=== PATIENT | male | born 1960 | race Caucasian/White ===

== ENCOUNTER 2020-04-24 07:24 | Emergency (ER) | payer SELFPAY ==
[~2020-04-24] VITALS: Ht 190.5 cm; Wt 127.0 kg
--- NOTE | 2020-04-24 07:51 | PHYS DOC ---
General Adult EDM: Chief Complaint: ANKLE PROBLEM HPI: HPI: 59-year-old male past medical history significant for hypertension and gout, presents to the ED with complaints of anterior right ankle pain that started on Sunday after patient injured his ankle while stepping in a hole. 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 No prior injury to this ankle. No pain at the knee or hip. Is supposed to be taking 5 blood pressure medications but refuses because they "flare up my gout." Pt has not been told by a physician his BP medications cause his gout, he believes they do. Reports his BP is "always high" and when asked what number he states "125." ROS: Denies associated fever, chills, headache, neck stiffness, nausea, vomiting, diarrhea, cough, sore throat, chest pain or pressure, dyspnea, orthopnea, leg swelling, rash, sensory/motor/neurologic deficits, difficulties walking, hemoptysis, other joint pain/swelling, anxiety/depression/SI or HI. Heart Score: Risk Factors: Risk Factors: DM, Current or recent (<one month) smoker, HTN, HLP, family history of CAD, obesity. Risk Scores: Score 0 - 3: 2.5% MACE over next 6 weeks - Discharge Home Score 4 - 6: 20.3% MACE over next 6 weeks - Admit for Clinical Observation Score 7 - 10: 72.7% MACE over next 6 weeks - Early Invasive Strategies PT WITH NO ACTIVE CHEST PAIN IN THE ED Physical Exam: PE: Constitutional: Well developed, well nourished, no acute distress, non-toxic appearance, obese HENT: Normocephalic, atraumatic, bilateral external ears normal, Eyes: EOMI, conjunctiva normal, no discharge. [] Neck: Normal range of motion, no tenderness, supple, no stridor. [] Cardiovascular:Heart rate regular rhythm, no murmur [] Lungs & Thorax: Bilateral breath sounds clear to auscultation [] Abdomen: Bowel sounds normal, soft, no tenderness, no masses, no pulsatile masses. [] Skin: Warm, dry, no erythema, no rash. [] Back: No tenderness, no CVA tenderness. [] Extremities: No tenderness, no cyanosis, no clubbing, ROM intact, +anterior ankle pain, no pain at lateral/medial malleoli/knee/fibular head or hip, right DP/PT intact Neurologic: Alert and oriented X 3, normal motor function, normal sensory function, no focal deficits noted. [] Psychologic: Affect normal, judgement normal, mood normal. [] EKG: EKG: Sinus rhythm at 60 bpm, no axis deviation, normal intervals, T wave inversion 1, 2, aVL, V4 through V6, no ST elevations or ST depressions, no prior EKG in EMR Radiology/Procedures: Radiology/Procedures: IMAGING REPORT Signed PATIENT: JUJU BYRD ACCOUNT: [id number] : 1960 LOCATION: ER AGE: 59 SEX: M EXAM STATUS: REG ER ORD. PHYSICIAN: ADAM TURNER DO REASON: ankle pain, pt stepped in a hole on Wed, pain lateral aspect. PROCEDURE: ANKLE RIGHT 3V Examination: 3 views of the right ankle HISTORY: History of ankle pain, injury COMPARISON: None available Findings The ankle mortise grossly appears unremarkable. There is no acute fracture or dislocation identified. Small calcaneal enthesophyte identified posteriorly and in the inferior aspect of the calcaneus IMPRESSION: 1. No acute osseous findings.. Electronically signed by: Joe Taylor MD (04/24/2020 8:13 AM) [id number] DICTATED and SIGNED BY: JOE TAYLOR MD DATE: 04/24/20812 IMAGING REPORT Signed PATIENT: JUJU BYRD ACCOUNT: [id number] : 1960 LOCATION: ER AGE: 59 SEX: M EXAM STATUS: REG ER ORD. PHYSICIAN: ADAM TURNER DO REASON: elevated bp PROCEDURE: CHEST PA & LATERAL Chest, PA and Lateral: Technique: PA and lateral views of the chest were obtained. History: Elevated blood pressure. Comparison: None. Findings: The heart and pulmonary vasculature appear within normal limits. The lungs are clear. The pleural margins are clear. Impression: No acute chest process is seen. Electronically signed by: Joe Taylor MD (04/24/2020 8:12 AM) [id number] DICTATED and SIGNED BY: JOE TAYLOR MD DATE: 04/24/20811 Course & Med Decision Making: Course & Med Decision Making Pertinent Labs and Imaging studies reviewed. (See chart for details) Concern for right anterior ankle sprain in the setting of uncontrolled, asymptomatic hypertension -patient has no difficulties breathing, chest pain or confusion. Labs including troponin are unremarkable, has no abnormal renal function. EKG is showing inferior lateral ischemia with no prior for comparison. I have educated patient regarding risk and dangers of his uncontrolled hypertension and that he could have a stroke, heart attack, life threatening arrhythmia, disability or even if he does not manage his BP better. Pt made aware of his ekg findings and I strongly recommended that pt be admitted for BP management and cardiology workup. Pt refusing admission and prescriptions for hypertensive medications-states he will not fill the medication or take the medication orally and then states "I'm allergic to all blood pressure medications." Even with pts' close friend at bedside, I am unable to convince pt (friend is also unable to convince him to be admitted) to stay and be admitted for serial troponins, BP management, cardiology consultation and intervention. Stated he wouldn't be admitted because he needs to smoke and nicorette gum and patches "won't work." Denies any prior h/o heart disease/CAD/ACS. Encouraged urgent outpatient follow-up with PMD, cardiology and orthopedic surgery. Life-threatening processes were considered and pt was educated on all prescription medications and adverse effects. Strict ED return precautions were given. All patient's questions were answered and pt was stable at time of discharge. Differential includes acute myocardial infarction, aortic dissection, congestive heart failure, esophageal injury including rupture, surgical abdomen, arrhythmia, cardiomyopathy, myocarditis, pericarditis, peptic ulcer disease, pneumomediastinum, pneumonia, pneumothorax, pulmonary embolus, unstable angina, rib fracture, contusion, pericardial tamponade or effusion, pulmonary contusion The patient has decided to leave our facility against medical advice. I have assessed patient's ability to make informed decision and feel the patient has the capacity to comprehend information regarding the current medical condition and appreciates the impact of the disease or condition and the consequences of various options for treatment, including foregoing treatment. The patient possesses the ability to evaluate all treatment options, comparing the risks and benefits of each option, communicate his or her choice in a consistent manner over time, and is able to make rational choices. I explained to the patient further testing, treatment, and evaluation I would like to perform in the emergency department visit as well as any possible alternatives that can be accomplished in a timely manner. I have outlined the possible risks of foregoing any or all of these interventions and the patient understands and acknowledges that the decision to leave may result in undesirable consequences such as , permanent disability, and/or loss of current lifestyle. Even though leaving AMA is not ideal, I have instructed the patient to follow any discharge instructions given, take any medications prescribed, and resume care as soon as possible with another provider. This conversation was witnessed by another member of the emergency department staff and pts' friend (her father is pts' employer), and we clearly communicated the patient is welcome to return anytime to continue care at our facility. Dragon Disclaimer: Dragon Disclaimer: This electronic medical record was generated, in whole or in part, using a voice recognition dictation system. Departure Departure Impression: Primary Impression: Sprain of right ankle Additional Impressions: Uncontrolled hypertension Abnormal EKG Disposition: 07 AGAINST MEDICAL ADVICE Condition: STABLE Patient Instructions: Ankle Sprain, Crutch Use, Hypertension, Splint Care, [id number] Additional Instructions: Tarun Munoz MD Interventional Cardiology, Cardiovascular Disease Address: [address] [place] [address] Toby Siu MD-Orthopaedic Surgery Address: [address] [place] [address] Justicifation of Admission Dx: Justifications for Admission: Justification of Admission Dx: N/A ADAM TURNER DO Apr 24, 2020 07:51
--- NOTE | 2020-04-24 08:14 | RAD ---
Chest, PA and Lateral: Technique: PA and lateral views of the chest were obtained. History: Elevated blood pressure. Comparison: None. Findings: The heart and pulmonary vasculature appear within normal limits. The lungs are clear. The pleural margins are clear. Impression: No acute chest process is seen. Electronically signed by: Joe Taylor MD (04/24/2020 8:12 AM) [id number]
--- NOTE | 2020-04-24 08:16 | RAD ---
Examination: 3 views of the right ankle HISTORY: History of ankle pain, injury COMPARISON: None available Findings The ankle mortise grossly appears unremarkable. There is no acute fracture or dislocation identified. Small calcaneal enthesophyte identified posteriorly and in the inferior aspect of the calcaneus IMPRESSION: 1. No acute osseous findings.. Electronically signed by: Joe Taylor MD (04/24/2020 8:13 AM) [id number]
[2020-04-24 08:46] LABS: BASO # 0.1 x10^3/uL (0.0-0.2); BASO % 1 % (0-3); EOS # 0.1 x10^3/uL (0.0-0.7); EOS % 2 % (0-3); HEMATOCRIT 42.3 % (39.0-53.0); HEMOGLOBIN 14.6 g/dL (13.0-17.5); LYMPH # 1.1 x10^3/uL (1.0-4.8); LYMPH % 16 % (24-48); MEAN CORPUSCULAR HEMOGLOBIN 31 pg (25-35); MEAN CORPUSCULAR HGB CONC 35 g/dL (31-37); MEAN CORPUSCULAR VOLUME 89 fL (79-100); MONO # 0.5 x10^3/uL (0.0-1.1); MONO % 7 % (0-9); NEUT # 5.2 x10^3/uL (1.8-7.7); NEUT % 75 % (31-73); PLATELET COUNT 209 x10^3/uL (140-400); RED BLOOD COUNT 4.75 x10^6/uL (4.30-5.70); RED CELL DISTRIBUTION WIDTH 14.4 % (11.5-14.5)
[2020-04-24 08:53] LABS: CALCIUM 8.5 mg/dL (8.5-10.1); CREATININE 1.2 mg/dL (0.7-1.3); GFR 62.4; POTASSIUM 3.8 mmol/L (3.5-5.1)
[2020-04-24 08:59] LABS: ALBUMIN 3.6 g/dL (3.4-5.0); TOTAL BILIRUBIN 0.8 mg/dL (0.2-1.0); TOTAL PROTEIN 7.3 g/dL (6.4-8.2)
[2020-04-24 10:20] VITALS: BP 257/119
--- NOTE | 2020-04-26 07:08 | EKG ---
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
== END 2020-04-24 10:18 | disposition left against medical advice (07) ==
LOC: ER 07:24
DX: S93.491A Sprain of other ligament of right ankle, initial encounter (principal); R94.31 Abnormal electrocardiogram [ECG] [EKG]; I10 Essential (primary) hypertension; W18.39XA Other fall on same level, initial encounter; Y93.89 Activity, other specified; Y92.89 Other specified places as the place of occurrence of the external cause; Y99.8 Other external cause status
CPT/HCPCS: 29515; 36415; 71046; 73610; 80053; 84484; 85025; 93005; 99285

== ENCOUNTER 2020-05-13 08:46 | Emergency (ER) | payer SELFPAY ==
[~2020-05-13] VITALS: Ht 190.5 cm; Wt 127.2 kg
[2020-05-13 08:52] VITALS: BP 160/118
[2020-05-13 09:45] LABS: BASO % 0 % (0-3); EOS # 0.1 x10^3/uL (0.0-0.7); EOS % 1 % (0-3); HEMATOCRIT 44.6 % (39.0-53.0); HEMOGLOBIN 15.6 g/dL (13.0-17.5); LYMPH # 1.8 x10^3/uL (1.0-4.8); LYMPH % 19 % (24-48); MEAN CORPUSCULAR HEMOGLOBIN 31 pg (25-35); MEAN CORPUSCULAR HGB CONC 35 g/dL (31-37); MEAN CORPUSCULAR VOLUME 88 fL (79-100); MONO # 0.5 x10^3/uL (0.0-1.1); MONO % 5 % (0-9); NEUT # 7.1 x10^3/uL (1.8-7.7); NEUT % 75 % (31-73); PLATELET COUNT 237 x10^3/uL (140-400); RED BLOOD COUNT 5.05 x10^6/uL (4.30-5.70); RED CELL DISTRIBUTION WIDTH 14.1 % (11.5-14.5); WHITE BLOOD COUNT 9.4 x10^3/uL (4.0-11.0)
[2020-05-13 10:00] LABS: CALCIUM 8.9 mg/dL (8.5-10.1); CREATININE 1.2 mg/dL (0.7-1.3); GFR 62.4; POTASSIUM 3.1 mmol/L (3.5-5.1)
--- NOTE | 2020-05-13 10:11 | RAD ---
EXAM: KNEE LEFT 3V 05/13/2020 9:16 AM CLINICAL INDICATION:Knee pain, possible gout COMPARISON:None TECHNIQUE:3 views of the left knee FINDINGS:Mild medial compartment narrowing. Small tricompartmental osteophytes. No fracture or malalignment. Trace joint effusion. Mild prepatellar soft tissue thickening. IMPRESSION: 1. No acute osseous abnormality. 2. Mild prepatellar soft tissue thickening, which could be seen with bursitis. 3. Mild degenerative joint disease. Electronically signed by: Keren Prieto MD (05/13/2020 10:08 AM) [id number]
[2020-05-13] MEDS ORDERED: HYDROcodone/APAP 5/325MG 1 TAB TABLET PO ONE (10:15)
[2020-05-13] MEDS ORDERED: INDO50CA15 PO (10:29)
--- NOTE | 2020-05-13 10:32 | PHYS DOC ---
Past Medical History Past Medical History: Hypertension, Other Additional Past Medical Histor: GOUT Past Surgical History: Other Additional Past Surgical Histo: LUMBAR DISCECTOMY Smoking Status: Current Every Day Smoker Additional Information: "1 PACK PER DAY" Alcohol Use: None General Adult EDM: Chief Complaint: KNEE INJURY HPI: HPI: 59-year-old male past medical history of gout and hypertension, takes no routine medications (pt refuses to), presents to the ED with complaints of left knee swelling and tenderness for the past week. Patient states he has a history of gout that he was diagnosed in the early and self-guided with an arthrocen tesis, uric acid levels usually around 7. States indomethacin helps but he is out of this medication. Took 3 tablets of prednisone and Motrin yesterday with some right symptom relief. States he believes he had COVID 3 weeks ago although his test came back negative. No associated fever, other joint involvement. States he has had a gout flareup in more than 5 years. States "all blood pressure medications caused my gout." Reports no recent sexual activity. Review of Systems: Review of Systems: Constitutional: Denies fever or chills. [] Eyes: Denies change in visual acuity. [] HENT: Denies nasal congestion or sore throat, nuchal rigidity or meningismus Respiratory: Denies cough or shortness of breath. [] Cardiovascular: Denies chest pain or edema. [] GI: Denies abdominal pain, nausea, vomiting, or diarrhea. [] : Denies dysuria, materia, rash or urethral discharge Musculoskeletal: Denies back pain or other joint pain. [] Integument: Denies rash. [] Neurologic: Denies headache, focal weakness or sensory changes. [] Endocrine: Denies polyuria or polydipsia. [] Lymphatic: Denies swollen glands. [] Psychiatric: Denies depression or anxiety. [] Heart Score: Risk Factors: Risk Factors: DM, Current or recent (<one month) smoker, HTN, HLP, family history of CAD, obesity. Risk Scores: Score 0 - 3: 2.5% MACE over next 6 weeks - Discharge Home Score 4 - 6: 20.3% MACE over next 6 weeks - Admit for Clinical Observation Score 7 - 10: 72.7% MACE over next 6 weeks - Early Invasive Strategies Current Medications: Current Medications Medications (Trade) Dose Ordered Sig/Hali Start Time Stop Time Status Last Admin Dose Admin Acetaminophen/ Hydrocodone Bitart (Lortab 5/325) 1 tab 1X ONCE 05/13/20 10:15 05/13/20 10:17 DC 05/13/20 10:23 1 TAB Allergies: Allergies: Allergies Coded Allergies Type Severity Reaction Last Updated Verified hydrochlorothiazide Allergy Unknown 04/24/20 Yes propranolol Allergy Unknown 04/24/20 Yes Physical Exam: PE: Constitutional: Well developed, well nourished, no acute distress, non-toxic appearance. [] HENT: Normocephalic, atraumatic, Eyes: EOMI, conjunctiva normal, no discharge. [] Neck: Normal range of motion, supple, Cardiovascular:Heart rate regular rhythm, no murmur [] Lungs & Thorax: Bilateral breath sounds clear to auscultation [] Abdomen: Bowel sounds normal, soft, no tenderness, no masses, no pulsatile masses. [] Skin: Warm, dry, no erythema, no rash. [] Back: No tenderness, no CVA tenderness. [] Extremities: + 2 prepatellar left knee effusion with painful range of motion, no erythema cannot appreciate any increased warmth compared to the other knee, no other joint involvement, no cyanosis, no clubbing,no edema. [] Neurologic: Alert and oriented X 3, normal motor function, normal sensory function, no focal deficits noted. [] Psychologic: Affect normal, judgement normal, mood normal. [] Current Patient Data: Labs: Laboratory Tests Test 05/13/20 09:30 White Blood Count 9.4 x10^3/uL (4.0-11.0) Red Blood Count 5.05 x10^6/uL (4.30-5.70) Hemoglobin 15.6 g/dL (13.0-17.5) Hematocrit 44.6 % (39.0-53.0) Mean Corpuscular Volume 88 fL (79-100) Mean Corpuscular Hemoglobin 31 pg (25-35) Mean Corpuscular Hemoglobin Concent 35 g/dL (31-37) Red Cell Distribution Width 14.1 % (11.5-14.5) Platelet Count 237 x10^3/uL (140-400) Neutrophils (%) (Auto) 75 % (31-73) H Lymphocytes (%) (Auto) 19 % (24-48) L Monocytes (%) (Auto) 5 % (0-9) Eosinophils (%) (Auto) 1 % (0-3) Basophils (%) (Auto) 0 % (0-3) Neutrophils # (Auto) 7.1 x10^3/uL (1.8-7.7) Lymphocytes # (Auto) 1.8 x10^3/uL (1.0-4.8) Monocytes # (Auto) 0.5 x10^3/uL (0.0-1.1) Eosinophils # (Auto) 0.1 x10^3/uL (0.0-0.7) Basophils # (Auto) 0.0 x10^3/uL (0.0-0.2) Sodium Level 142 mmol/L (136-145) Potassium Level 3.1 mmol/L (3.5-5.1) L Chloride Level 104 mmol/L (98-107) Carbon Dioxide Level 28 mmol/L (21-32) Anion Gap 10 (6-14) Blood Urea Nitrogen 20 mg/dL (8-26) Creatinine 1.2 mg/dL (0.7-1.3) Estimated GFR (Cockcroft-Gault) 62.4 Glucose Level 130 mg/dL (70-99) H Uric Acid 6.6 mg/dL (3.5-7.2) Calcium Level 8.9 mg/dL (8.5-10.1) Laboratory Tests 05/13/20 09:30 Laboratory Tests 05/13/20 09:30 Vital Signs: Vital Signs Date Time Temp Pulse Resp B/P (MAP) Pulse Ox O2 Delivery O2 Flow Rate FiO2 05/13/20 10:23 20 98 Room Air 05/13/20 08:52 98.2 77 160/118 (132) 98.2 EKG: EKG: [] Radiology/Procedures: Radiology/Procedures: [] Course & Med Decision Making: Course & Med Decision Making Pertinent Labs and Imaging studies reviewed. (See chart for details) Concern for atraumatic left knee pain for the past few days, has not had a gout flareup for more than 5 years and does not take any medications for his blood pressure (refuses -believes it causes gout flareup, educated that hydrochlorothiazide would do this). Patient well-appearing, afebrile with no leukocytosis. Uric acid is 6.6 which is close to his baseline. Patient afebrile and states pain is not present when he does not move his knee. Septic arthritis on the differential-educated patient that I cannot 100% confirm gout without an arthrocentesis, patient refused this procedure "i don't want that needle," despite risk of septic arthritis. Will prescribe indomethacin and have patient follow-up with his primary care physician, may need orthopedic surgery if worsens. Strict ed return precautions were given for worsening pain, other joint involvement or fever. Encouraged urgent outpatient follow-up with PMD and Ortho. Life-threatening processes were considered but are low suspicion at this time, given history and physical exam. Pt was educated on all prescription medications and adverse effects. All patient's questions were answered and pt was stable at time of discharge. Differential includes fracture, dislocation, laceration, osteomyelitis, compartment syndrome, neurovascular injury or deficit, infection (abscess, cellulitis, septic arthritis), tendon or ligament injury. I spoken with the patient and her caregivers. I explained the patient's condition, diagnoses and treatment plan based on the information available to me at this time. I have answered the patient and her caregiver's questions and addressed any concerns. The patient and her caregivers have a good understanding of patient's diagnosis, condition and treatment plan as can be expected at this point. Vital signs have been stable. Patient's condition is stable and appropriate for discharge from the emergency department. Patient will pursue further outpatient evaluation with primary care physician or other designated or consulting physician as outlined in the discharge instructions. The patient and/or caregivers are agreeable to this plan of care and follow-up instructions have been explained in detail. The patient and/or caregivers have received these instructions in written form and have expressed an understanding of the discharge instructions. The patient and/or caregivers are aware that any significant change of condition or worsening of symptoms should prompt immediate return to this or the closest emergency department or call to 911. Ritu Disclaimer: Ritu Disclaimer: This electronic medical record was generated, in whole or in part, using a voice recognition dictation system. Departure Departure Impression: Primary Impression: Left knee pain Additional Impressions: Bursitis of left knee Uncontrolled hypertension Disposition: HOME, SELF-CARE Condition: STABLE Referrals: NO PCP (PCP) Patient Instructions: Bursitis, Gout, Hypertension Additional Instructions: Jf Zavala MD Primary Specialties Orthopaedic Sports Medicine Orthopaedic Surgery [facility] Address: [address] [place] [address] Scripts Indomethacin (INDOMETHACIN) 50 Mg Capsule 1 CAP PO TID for arthritis for 5 Days, #15 CAP 0 Refills with food Prov: ADAM TURNER DO 05/13/20 Justicifation of Admission Dx: Justifications for Admission: Justification of Admission Dx: N/A ADAM TURNER DO May 13, 2020 10:32
== END 2020-05-13 10:40 | disposition home or self-care (01) ==
LOC: ER 08:46
DX: M70.52 Other bursitis of knee, left knee (principal); I10 Essential (primary) hypertension; Y93.89 Activity, other specified; M25.462 Effusion, left knee; M10.9 Gout, unspecified; F17.200 Nicotine dependence, unspecified, uncomplicated; Z88.8 Allergy status to other drugs, medicaments and biological substances
CPT/HCPCS: 36415; 73562; 80048; 84550; 85025; 99284

== ENCOUNTER 2021-01-05 17:22 | Emergency (ER) | payer SELFPAY ==
[~2021-01-05] VITALS: Ht 190.5 cm; Wt 127.2 kg
[~2021-01-05 17:22] MED LIST: INDO50CA15 PO
[2021-01-05 18:25] VITALS: BP 168/91
--- NOTE | 2021-01-05 19:17 | PHYS DOC ---
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 The edges are approximated and bleeding is scant. No deformity to the hand and he has full range of motion of all joints in the hand. Patient has a history of smoker, NH, CAD, gout, hypertension, high cholesterol. Denies any pain at this time. 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 [] Eyes: Denies change in visual acuity. [] HENT: Denies nasal congestion or sore throat. [] Respiratory: Denies cough or shortness of breath. [] Cardiovascular: Denies chest pain or edema. [] GI: Denies abdominal pain, nausea, vomiting, bloody stools or diarrhea. [] : Denies dysuria. [] Musculoskeletal: Denies back pain or joint pain. [] Integument: Denies rash. +Left dorsal hand laceration [] Neurologic: Denies headache, focal weakness or sensory changes. [] Endocrine: Denies polyuria or polydipsia. [] Lymphatic: Denies swollen glands. [] Psychiatric: Denies depression or anxiety. [] (NIKOS MOSLEY RENEWABLE ENERGY PROJECT MANAGER) Heart Score: C/O Chest Pain: No Risk Factors: Risk Factors: DM, Current or recent (<one month) smoker, HTN, HLP, family history of CAD, obesity. Risk Scores: Score 0 - 3: 2.5% MACE over next 6 weeks - Discharge Home Score 4 - 6: 20.3% MACE over next 6 weeks - Admit for Clinical Observation Score 7 - 10: 72.7% MACE over next 6 weeks - Early Invasive Strategies (NIKOS MOSLEY RENEWABLE ENERGY PROJECT MANAGER) Allergies: Allergies: Allergies Coded Allergies Type Severity Reaction Last Updated Verified hydrochlorothiazide Allergy Unknown 04/24/20 Yes propranolol Allergy Unknown 04/24/20 Yes (NIKOS MOSLEY APRN) Physical Exam: PE: Constitutional: Well developed, well nourished, no acute distress, non-toxic appearance. [] HENT: Normocephalic, atraumatic, bilateral external ears normal, oropharynx moist, no oral exudates, nose normal. [] Eyes: PERRLA, EOMI, conjunctiva normal, no discharge. [] Neck: Normal range of motion, no tenderness, supple, no stridor. [] Cardiovascular:Heart rate regular rhythm, no murmur [] Lungs & Thorax: Bilateral breath sounds clear to auscultation [] Abdomen: Bowel sounds normal, soft, no tenderness, no masses, no pulsatile masses. [] Skin: Warm, dry, no erythema, no rash. 1 inch approximated edges of the l aceration to the left dorsal hand [] Back: No tenderness, no CVA tenderness. [] Extremities: No tenderness, no cyanosis, no clubbing, ROM intact, no edema. [] Neurologic: Alert and oriented X 3, normal motor function, normal sensory function, no focal deficits noted. [] Psychologic: Affect normal, judgement normal, mood normal. [] (NIKOS MOSLEY APRN) Current Patient Data: Vital Signs: Vital Signs Date Time Temp Pulse Resp B/P (MAP) Pulse Ox O2 Delivery O2 Flow Rate FiO2 01/05/21 18:25 97.9 70 18 168/91 (116) 98 Room Air 97.9 (NIKOS MOSLEY APRN) EKG: EKG: [] (NIKOS MOSLEY APRN) Radiology/Procedures: Radiology/Procedures: [] Impression: [facility] [address] [place] [address] IMAGING REPORT Signed PATIENT: JUJU BYRD ACCOUNT: [id number] : 1960 LOCATION: ER AGE: 60 SEX: M EXAM STATUS: REG ER ORD. PHYSICIAN: NIKOS MOSLEY APRN REASON: LACERATION CAUSED BY RUBBER OFF PROCEDURE: HAND LEFT 3V XR HAND_LEFT 3 VIEWS DATE: 01/05/2021 7:05 PM INDICATION: LACERATION CAUSED BY RUBBER OFF / Spl. Instructions: / History: COMPARISON: None. FINDINGS: Bones: There is no evidence of acute fracture or dislocation. Joints: The joint spaces are normal. Miscellaneous: No radiopaque foreign bodies. IMPRESSION: No acute fracture. No radiopaque foreign body. Electronically signed by: Morelia Monson MD (01/05/2021 7:15 PM) [facility] DICTATED and SIGNED BY: MORELIA MONSON MD DATE: 01/05/21 [id number] 0 (NIKOS MOSLEY APRN) Course & Med Decision Making: Course & Med Decision Making Pertinent Labs and Imaging studies reviewed. (See chart for details) See HPI. Alert and oriented x4. Ambulatory with steady gait. Radial pulses strong and present. Cap refill less than 2 seconds. No joint laxity or deformity. Full range of motion of all hand joints. Edges are approximated and bleeding is very scant. Patient had a recent tetanus shot. X-ray shows no acute findings or foreign objects. Laceration repair Location: Left dorsal hand 1 inch long, very superficial. No depth Local anesthesia: None Interrupted sutures/Internal sutures: Dermabond Nerve/ligament/muscle damage: None Cleaning and irrigation: Chlorhexidine and saline The appropriate timeout was taken. The area was prepped and draped in the usual sterile fashion. The wound was copiously irrigated with normal saline and chlorhexidine. Patient tolerated well without complication. Dressing was applied to the area follow-up education is given to observe for signs and symptoms of infection, bleeding and to follow-up promptly if these occur. Patient can return in 48 hours for a wound recheck. Sutures to be removed in 7 to 10 days. (NIKOS MOSLEY APRN) Course & Med Decision Making I oversaw on the above date of service of this patient and discussed the care with the TELEGRAPH PRINTER MECHANIC. I agree with the findings, plan of care, and disposition as documented. Electronically signed, [facility] [facility] DO (GARDEN[facility]SE DO) Ritu Disclaimer: Ritu Disclaimer: This electronic medical record was generated, in whole or in part, using a voice recognition dictation system. (NIKOS MOSLEY APRN) Departure Departure Impression: Primary Impression: Laceration Disposition: HOME / SELF CARE / HOMELESS Condition: STABLE Referrals: NO PCP (PCP) Patient Instructions: Laceration Care, Adult Additional Instructions: Follow-up with primary care provider. Keep clean watch for signs of infection. Take medication as prescribed and with food. Scripts Cephalexin (CEPHALEXIN) 500 Mg Capsule 1 CAP PO QID, #40 CAP Prov: NIKOS MOSLEY APRN 01/05/21 NIKOS MOSLEY APRN January 05, 2021 19:17 GARDEN[facility]SE DO January 11, 2021 00:00
[2021-01-05] MEDS ORDERED: CEPH500C PO (19:21)
== END 2021-01-05 19:35 | disposition home or self-care (01) ==
LOC: ER 17:22
DX: S61.412A Laceration without foreign body of left hand, initial encounter (principal); I10 Essential (primary) hypertension; E78.00 Pure hypercholesterolemia, unspecified; M10.9 Gout, unspecified; Z86.73 Personal history of transient ischemic attack (TIA), and cerebral infarction without residual deficits; X58.XXXA Exposure to other specified factors, initial encounter; Y93.89 Activity, other specified; Y92.89 Other specified places as the place of occurrence of the external cause; Y99.8 Other external cause status
CPT/HCPCS: 12001; 73130; 99283

== ENCOUNTER 2021-01-29 13:38 | Emergency (ER) | payer SELFPAY ==
[~2021-01-29] VITALS: Ht 190.5 cm; Wt 127.0 kg
[~2021-01-29 13:38] MED LIST changes: +CEPH500C PO
[2021-01-29 13:40] VITALS: BP 118/73
[2021-01-29 14:17] LABS: BILIRUBIN,URINE NEGATIVE (NEG); CLARITY,URINE CLEAR; COLOR,URINE YELLOW; NITRITE,URINE NEGATIVE (NEG); PH,URINE 5.5 (<5.0-8.0); PROTEIN,URINE NEGATIVE (NEG-TRACE)
--- NOTE | 2021-01-29 14:23 | RAD ---
Single view chest and 3 views thoracic spine dated 01/29/2021. No comparison available. Clinical data indication: Mid back pain. FINDINGS: Single view of the chest shows normal heart and mediastinal contours. Lungs are somewhat hyperinflate d but otherwise clear. No consolidation or pleural effusion. No pneumothorax. 3 views of thoracic spine show normal sagittal alignment. Vertebral body heights are maintained. Mild to moderate endplate hypertrophic changes throughout. No paraspinous soft tissue abnormality. IMPRESSION: 1. No acute findings. 2. Multilevel thoracic spondylosis. Electronically signed by: Maulik Live MD (01/29/2021 2:21 PM) [id number]
[2021-01-29 14:26] LABS: HYALINE CASTS, URINE MANY /HPF
[2021-01-29 14:27] LABS: BACTERIA,URINE 0 /HPF (0-FEW)
--- NOTE | 2021-01-29 15:30 | RAD ---
INDICATION: Reason: right mid back pain blood in urine / Spl. Instructions: / History: . COMPARISON: None. TECHNIQUE: Axial CT images obtained through the abdomen and pelvis without contrast. One or more of the following individualized dose reduction techniques were utilized for this examinat ion: 1. Automated exposure control; 2. Adjustment of the mA and/or kV according to patient size; 3 . Use of iterative reconstruction technique. FINDINGS: There is some bronchiectasis at the right lung base. Some peribronchial thickening. Partial visualization of suspected stent in the right coronary artery. There is some ectasia of infrarenal abdominal aorta as well as the common iliac arteries. Small fat-containing left inguinal hernia. No intrahepatic bile duct dilation. No peripancreatic fluid collection. Splenic calcified granulomas. Spleen mildly prominent in size. No hydronephrosis. Urinary bladder is largely decompressed which limits evaluation. Low-density right adrenal nodule measuring approximately 13 mm. Could be from hyperplasia or adenoma Prostate calcifications. Colonic diverticulosis. No periappendiceal inflammatory changes. Small fat-containing umbilical hernia. Degenerative changes the spine are identified with disc protrusions and osteophyte formation as well as facet hypertrophy with multilevel central canal and neural foraminal stenosis. Adjacent to the spi ne within the lower thoracic and upper lumbar region there is some edema to the fat identified. In ad dition there is a couple of lucency seen at the osteophytes including at T10-11 and T11-12 at this lo cation mild wedging of the T11 and T10 vertebral bodies anteriorly. IMPRESSION: * No hydronephrosis. * There is some edema to the fat seen surrounding the spine near the thoracolumbar junction. There i s mild wedging of the T10 and T11 vertebral bodies as well as lucency extending through a couple of o steophytes. Given the adjacent edema to the fat one possible cause would include fracture through ost eophytes or mild compression fracture. Would also correlate with symptoms and lab markers to ensure t hat there is not an alternative cause such as infection. There is not a destructive changes at the ve rtebral body endplates to suggest discitis osteomyelitis but would still correlate with symptoms give n these inflammatory changes. * Calcific atherosclerosis. * Urinary bladder is decompressed which limits evaluation. * Bronchiectasis and peribronchial thickening at the right lung base. Electronically signed by: Walter Wilkinson MD (01/29/2021 3:27 PM) [id number]
--- NOTE | 2021-01-29 15:59 | PHYS DOC ---
Past Medical History Past Medical History: CAD, High Cholesterol, Hypertension Additional Past Medical Histor: GOUT Past Surgical History: Other Additional Past Surgical Histo: STENTS Smoking Status: Current Every Day Smoker Alcohol Use: None General Adult EDM: Chief Complaint: BACK PAIN - NO INJURY HPI: HPI: Patient is a 60 year old male patient with history of CAD, hypertension, high cholesterol, who presents to the ED today complaining of 7 out of 10 sharp right mid to low back pain, symptoms began last night. Patient states symptoms are worse when he takes a deep breath. He states occasionally he feels the pain on the right lower ribs. Patient denies anything specifically relieving the pain. Denies any fever, cough, congestion, denies any chest pain or shortness of breath. Denies any personal family history of kidney stones. Denies any recent hospitalization, denies any use of hormones. Review of Systems: Review of Systems: Constitutional: Denies fever or chills. [] Eyes: Denies change in visual acuity. [] HENT: Denies nasal congestion or sore throat. [] Respiratory: Reports right rib pain. Denies cough or shortness of breath. [] Cardiovascular: Denies chest pain or edema. [] GI: Denies abdominal pain, nausea, vomiting, bloody stools or diarrhea. [] : Denies dysuria. [] Musculoskeletal: Reports right mid to low back pain Integument: Denies rash. [] Neurologic: Denies headache, focal weakness or sensory changes. [] [] Psychiatric: Denies depression or anxiety. [] Heart Score: C/O Chest Pain: N/A Risk Factors: Risk Factors: DM, Current or recent (<one month) smoker, HTN, HLP, family history of CAD, obesity. Risk Scores: Score 0 - 3: 2.5% MACE over next 6 weeks - Discharge Home Score 4 - 6: 20.3% MACE over next 6 weeks - Admit for Clinical Observation Score 7 - 10: 72.7% MACE over next 6 weeks - Early Invasive Strategies Allergies: Allergies: Allergies Coded Allergies Type Severity Reaction Last Updated Verified hydrochlorothiazide Allergy Intermediate GOUT FLARE-UP 01/06/21 Yes propranolol Allergy Intermediate GOUT FLARE-UP 01/06/21 Yes Physical Exam: PE: Constitutional: Well developed, well nourished, no acute distress, non-toxic appearance. [] HENT: Normocephalic, atraumatic, bilateral external ears normal, oropharynx moist, no oral exudates, nose normal. [] Eyes: PERRLA, EOMI, conjunctiva normal, no discharge. [] Neck: Normal range of motion, no tenderness, supple, no stridor. [] Cardiovascular:Heart rate regular rhythm, no murmur [] Lungs & Thorax: Bilateral breath sounds clear to auscultation [] Abdomen: Bowel sounds normal, soft, no tenderness, no masses, no pulsatile masses. [] Skin: Warm, dry, no erythema, no rash. [] Back: Tenderness on palpation of the right lower thoracic spine with a slight midline thoracic spine tenderness, no CVA tenderness. [] Extremities: No tenderness, no cyanosis, no clubbing, ROM intact, no edema. [] Neurologic: Alert and oriented X 3, normal motor function, normal sensory function, no focal deficits noted. [] Psychologic: Affect normal, judgement normal, mood normal. [] Current Patient Data: Labs: Laboratory Tests Test 01/29/21 14:07 Urine Collection Type Unknown Urine Color Yellow Urine Clarity Clear Urine pH 5.5 (<5.0-8.0) Urine Specific [place] >=1.030 (1.000-1.030) Urine Protein Negative mg/dL (NEG-TRACE) Urine Glucose (UA) Negative mg/dL (NEG) Urine Ketones (Stick) Negative mg/dL (NEG) Urine Blood Small (NEG) Urine Nitrite Negative (NEG) Urine Bilirubin Negative (NEG) Urine Urobilinogen Dipstick 1.0 mg/dL (0.2 mg/dL) Urine Leukocyte Esterase Negative (NEG) Urine RBC 3-5 /HPF (0-2) Urine WBC 1-4 /HPF (0-4) Urine Bacteria 0 /HPF (0-FEW) Urine Hyaline Casts Many /HPF Urine Mucus Marked /LPF Vital Signs: Vital Signs Date Time Temp Pulse Resp B/P (MAP) Pulse Ox O2 Delivery O2 Flow Rate FiO2 01/29/21 13:40 97.3 68 18 118/73 (88) 98 Room Air 97.3 EKG: EKG: [] Radiology/Procedures: Radiology/Procedures: []PROCEDURE: CT ABDOMEN PELVIS WO CONTRAST INDICATION: Reason: right mid back pain blood in urine / Spl. Instructions: / History: . COMPARISON: None. TECHNIQUE: Axial CT images obtained through the abdomen and pelvis without contrast. One or more of the following individualized dose reduction techniques were utilized for this examination: 1. Automated exposure control; 2. Adjustment of the mA and/or kV according to patient size; 3. Use of iterative reconstruction technique. FINDINGS: There is some bronchiectasis at the right lung base. Some peribronchial thickening. Partial visualization of suspected stent in the right coronary artery. There is some ectasia of infrarenal abdominal aorta as well as the common iliac arteries. Small fat-containing left inguinal hernia. No intrahepatic bile duct dilation. No peripancreatic fluid collection. Splenic calcified granulomas. Spleen mildly prominent in size. No hydronephrosis. Urinary bladder is largely decompressed which limits evaluation. Low-density right adrenal nodule measuring approximately 13 mm. Could be from hyperplasia or adenoma Prostate calcifications. Colonic diverticulosis. No periappendiceal inflammatory changes. Small fat-containing umbilical hernia. Degenerative changes the spine are identified with disc protrusions and osteophyte formation as well as facet hypertrophy with multilevel central canal and neural foraminal stenosis. Adjacent to the spine within the lower thoracic and upper lumbar region there is some edema to the fat identified. In addition there is a couple of lucency seen at the osteophytes including at T10-11 and T11-12 at this location mild wedging of the T11 and T10 vertebral bodies anteriorly. IMPRESSION: * No hydronephrosis. * There is some edema to the fat seen surrounding the spine near the thoracolumbar junction. There is mild wedging of the T10 and T11 vertebral bodies as well as lucency extending through a couple of osteophytes. Given the adjacent edema to the fat one possible cause would include fracture through osteophytes or mild compression fracture. Would also correlate with symptoms and lab markers to ensure that there is not an alternative cause such as infection. There is not a destructive changes at the vertebral body endplates to suggest discitis osteomyelitis but would still correlate with symptoms given these inflammatory changes. * Calcific atherosclerosis. * Urinary bladder is decompressed which limits evaluation. * Bronchiectasis and peribronchial thickening at the right lung base. Electronically signed by: Mary Shaw MD (01/29/2021 3:27 PM) [id number] DICTATED and SIGNED BY: MARY SHAW MD DATE: 01/29/21 [id number] 0 PROCEDURE: THORACIC SPINE 3V Single view chest and 3 views thoracic spine dated 01/29/2021. No comparison available. Clinical data indication: Mid back pain. FINDINGS: Single view of the chest shows normal heart and mediastinal contours. Lungs are somewhat hyperinflated but otherwise clear. No consolidation or pleural effusion. No pneumothorax. 3 views of thoracic spine show normal sagittal alignment. Vertebral body heights are maintained. Mild to moderate endplate hypertrophic changes throughout. No paraspinous soft tissue abnormality. IMPRESSION: 1. No acute findings. 2. Multilevel thoracic spondylosis. Electronically signed by: Maulik Live MD (01/29/2021 2:21 PM) [id number] DICTATED and SIGNED BY: MAULIK LIVE MD DATE: 01/29/21 [id number] 0 PROCEDURE: CHEST AP ONLY Single view chest and 3 views thoracic spine dated 01/29/2021. No comparison available. Clinical data indication: Mid back pain. FINDINGS: Single view of the chest shows normal heart and mediastinal contours. Lungs are somewhat hyperinflated but otherwise clear. No consolidation or pleural effusion. No pneumothorax. 3 views of thoracic spine show normal sagittal alignment. Vertebral body heights are maintained. Mild to moderate endplate hypertrophic changes throughout. No paraspinous soft tissue abnormality. IMPRESSION: 1. No acute findings. 2. Multilevel thoracic spondylosis. Electronically signed by: Maulik Live MD (01/29/2021 2:21 PM) [id number] DICTATED and SIGNED BY: MAULIK LIVE MD DATE: 01/29/21 [id number] 0 Course & Med Decision Making: Course & Med Decision Making Pertinent Labs and Imaging studies reviewed. (See chart for details) This is a 60-year-old male patient presenting to the ED today complaining of mid low back pain, symptoms began last night. Symptoms are worse with deep breath. Also reports lower rib pain. Denies any known injury. Chest x-ray is negative for any acute findings, x-ray of the thoracic spine is negative. UA was noted for small amount of blood. CT of the abdomen and pelvic was obtained to rule out kidney stones. No kidney stones noted, noted for possible T10-T11 fracture/infection. Lab work will be done to rule out infection, patient denies any injuries to cause fracture. CBC with a normal WBC, CMP with creatinine of 2.1 BUN of 37, patient denies any history of renal failure. Patient was offered admission, he stated he cannot be in the hospital, he is alert oriented x4 and able to make his own decisions. He decided to leave AGAINST MEDICAL ADVICE. I talked to patient prior to leaving. He was not willing to be admitted. I recommended he follows up with his own PCP on Sunday. I gave him the risk of leaving AMA including complete kidney failure, and disability. Dragon Disclaimer: Ritu Disclaimer: This electronic medical record was generated, in whole or in part, using a voice recognition dictation system. Departure Departure Impression: Primary Impression: Acute renal failure Qualified Codes: N17.9 - Acute kidney failure, unspecified Additional Impression: Mid back pain on right side Disposition: LEFT AGAINST MEDICAL ADVICE Condition: STABLE Referrals: NON,STAFF (PCP) TAB ROJO POT PULLER Jan 29, 2021 15:59
[2021-01-29 16:37] LABS: BASO # 0.1 x10^3/uL (0.0-0.2); BASO % 1 % (0-3); EOS # 0.1 x10^3/uL (0.0-0.7); EOS % 1 % (0-3); HEMATOCRIT 36.9 % (39.0-53.0); HEMOGLOBIN 13.1 g/dL (13.0-17.5); LYMPH # 1.2 x10^3/uL (1.0-4.8); LYMPH % 13 % (24-48); MEAN CORPUSCULAR HEMOGLOBIN 32 pg (25-35); MEAN CORPUSCULAR HGB CONC 36 g/dL (31-37); MEAN CORPUSCULAR VOLUME 89 fL (79-100); MONO # 0.6 x10^3/uL (0.0-1.1); MONO % 6 % (0-9); NEUT # 7.7 x10^3/uL (1.8-7.7); NEUT % 79 % (31-73); PLATELET COUNT 241 x10^3/uL (140-400); RED BLOOD COUNT 4.13 x10^6/uL (4.30-5.70); WHITE BLOOD COUNT 9.8 x10^3/uL (4.0-11.0)
[2021-01-29 16:45] LABS: CALCIUM 9.2 mg/dL (8.5-10.1); CREATININE 2.1 mg/dL (0.7-1.3); GFR 32.6; POTASSIUM 3.8 mmol/L (3.5-5.1)
[2021-01-29 16:51] LABS: ALBUMIN 3.7 g/dL (3.4-5.0); ALBUMIN/GLOBULIN RATIO 0.9 (1.0-1.7); C-REACTIVE PROTEIN 37.9 mg/L (0-3.3); TOTAL PROTEIN 7.6 g/dL (6.4-8.2)
== END 2021-01-29 17:20 | disposition left against medical advice (07) ==
LOC: ER 13:38
DX: N17.9 Acute kidney failure, unspecified (principal); M54.6 Pain in thoracic spine; M54.5 Low back pain; R07.81 Pleurodynia; E78.00 Pure hypercholesterolemia, unspecified; I10 Essential (primary) hypertension; I25.10 Atherosclerotic heart disease of native coronary artery without angina pectoris; M10.9 Gout, unspecified; F17.200 Nicotine dependence, unspecified, uncomplicated; M47.814 Spondylosis without myelopathy or radiculopathy, thoracic region; Z95.5 Presence of coronary angioplasty implant and graft
CPT/HCPCS: 36415; 71045; 72072; 74176; 80053; 81001; 83605; 84145; 85025; 85651; 86140; 99285-25

== ENCOUNTER 2021-07-27 10:24 | Emergency (ER) | payer SELFPAY ==
[~2021-07-27] VITALS: Ht 190.5 cm; Wt 125.0 kg
--- NOTE | 2021-07-27 12:17 | RAD ---
EXAM: 3 views right foot DATE: 07/27/2021 12:01 PM INDICATION: Reason: foot pain / Spl. Instructions: / History: . COMPARISON: No Prior FINDINGS: No evidence of acute fracture or dislocation. Midfoot degenerative changes. Calcaneal enthesophytes. Soft tissue swelling and irregularity about the right great toe without definite erosive/destructive change. IMPRESSION: 1. No evidence of acute fracture or dislocation. 2. Midfoot degenerative changes 3. Soft tissue swelling and irregularity about the right great toe without definite erosive/destruct aurora change. No radiographic evidence for osteoarthritis although if there is clinical concern, MRI wo uld provide additional details. Electronically signed by: Kit Cadena MD (07/27/2021 12:14 PM) [id number]
--- NOTE | 2021-07-27 12:30 | PHYS DOC ---
Past Medical History Past Medical History: CAD, High Cholesterol, Hypertension Additional Past Medical Histor: 3 cardiac stents (ARNOLDO JURADO APRN) Past Surgical History: No Surgical History Additional Past Surgical Histo: STENTS (ARNOLDO JURADO APRN) Smoking Status: Current Every Day Smoker Alcohol Use: None (ARNOLDO JURADO APRN) General Adult EDM: Chief Complaint: FOOT INJURY PAIN HPI: HPI: Patient is a 60-year-old male that comes today with right midfoot pain. Patient states pain started a couple of days ago and is progressively gotten worse. Patient states he has had no trauma, and has not done extensive walking over the last couple of days. Patient states that he does have a history of gout but has not had it in the right foot (ARNOLDO JURADO [employer] MANAGER) Review of Systems: Review of Systems: Constitutional: Denies fever or chills. [] Eyes: Denies change in visual acuity. [] HENT: Denies nasal congestion or sore throat. [] Respiratory: Denies cough or shortness of breath. [] Cardiovascular: Denies chest pain or edema. [] GI: Denies abdominal pain, nausea, vomiting, bloody stools or diarrhea. [] : Denies dysuria. [] Musculoskeletal: Right foot pain Integument: Denies rash. [] Neurologic: Denies headache, focal weakness or sensory changes. [] Endocrine: Denies polyuria or polydipsia. [] Lymphatic: Denies swollen glands. [] Psychiatric: Denies depression or anxiety. [] (ARNOLDO JURADO [employer] MANAGER) Heart Score: C/O Chest Pain: N/A Risk Factors: Risk Factors: DM, Current or recent (<one month) smoker, HTN, HLP, family history of CAD, obesity. Risk Scores: Score 0 - 3: 2.5% MACE over next 6 weeks - Discharge Home Score 4 - 6: 20.3% MACE over next 6 weeks - Admit for Clinical Observation Score 7 - 10: 72.7% MACE over next 6 weeks - Early Invasive Strategies (ARNOLDO JURADO APRN) Allergies: Allergies: Allergies Coded Allergies Type Severity Reaction Last Updated Verified hydrochlorothiazide Allergy Intermediate GOUT FLARE-UP 01/06/21 Yes propranolol Allergy Intermediate GOUT FLARE-UP 01/06/21 Yes (ARNOLDO JURADO APRN) Physical Exam: PE: Constitutional: Well developed, well nourished, no acute distress, non-toxic appearance. [] HENT: Normocephalic, atraumatic, bilateral external ears normal, oropharynx moist, no oral exudates, nose normal. [] Eyes: PERRLA, EOMI, conjunctiva normal, no discharge. [] Neck: Normal range of motion, no tenderness, supple, no stridor. [] Cardiovascular:Heart rate regular rhythm, no murmur [] Lungs & Thorax: Bilateral breath sounds clear to auscultation [] Abdomen: Bowel sounds normal, soft, no tenderness, no masses, no pulsatile masses. [] Skin: Warm, dry, no erythema, no rash. [] Back: No tenderness, no CVA tenderness. [] Extremities: Right foot tenderness noted over the midfoot over the metatarsal 4 and 5, right swelling noted no lacerations, abrasions, contusions, or ecchymosis noted, cap refill distal to the pain is to less than 2 seconds, DP 2+ neurovascular intact distal to the pain Neurologic: Alert and oriented X 3, normal motor function, normal sensory function, no focal deficits noted. [] Psychologic: Affect normal, judgement normal, mood normal. [] (ARNOLDO JURADO APRN) Current Patient Data: Vital Signs: Vital Signs Date Time Temp Pulse Resp B/P (MAP) Pulse Ox O2 Delivery O2 Flow Rate FiO2 07/27/21 11:46 98.0 55 18 134/79 (97) 99 Room Air 98.0 (ARNOLDO JURADO APRN) EKG: EKG: [] (ARNOLDO JURADO APRN) Radiology/Procedures: Radiology/Procedures: REASON: foot pain PROCEDURE: FOOT RIGHT 3V EXAM: 3 views right foot DATE: 07/27/2021 12:01 PM INDICATION: Reason: foot pain / Spl. Instructions: / History: . COMPARISON: No Prior FINDINGS: No evidence of acute fracture or dislocation. Midfoot degenerative changes. Calcaneal enthesophytes. Soft tissue swelling and irregularity about the right great toe without definite erosive/destructive change. IMPRESSION: 1. No evidence of acute fracture or dislocation. 2. Midfoot degenerative changes 3. Soft tissue swelling and irregularity about the right great toe without definite erosive/destructive change. No radiographic evidence for osteoarthritis although if there is clinical concern, MRI would provide additional details. Electronically signed by: Kit Cadena MD (07/27/2021 12:14 PM) [id number] [] (ARNOLDO JURADO APRN) Course & Med Decision Making: Course & Med Decision Making Pertinent Labs and Imaging studies reviewed. (See chart for details) X-ray shows degenerative changes along the midfoot, will place patient in a postop shoe for comfort and will have patient follow-up with podiatry or primary care physician for further management of his foot pain (ARNOLDO JURADO APRN) Dragon Disclaimer: Dragon Disclaimer: This electronic medical record was generated, in whole or in part, using a voice recognition dictation system. (ARNOLDO JURADO APRN) Departure Departure Impression: Primary Impression: Foot pain, right Disposition: HOME / SELF CARE / HOMELESS Condition: STABLE Referrals: NON,STAFF (PCP) [facility] Patient Instructions: Foot Contusion Additional Instructions: Wear postop shoe for pain and comfort May take [id number] Tylenol and/or ibuprofen as labeled directed for pain Follow-up with primary care or podiatry in the next 5 to 7 days for further management of foot pain Attending Signature Attending Signature I have reviewed the PA/RIPSAWYER's note and plan of care. I was available for consultat ion as needed during the patient's visit in the emergency department. I agree with the clinical impression, plan, and disposition. (MANNIE HARDING DO) ARNOLDO JURADO APRN Jul 27, 2021 12:29 MANNIE HARDING DO Aug 06, 2021 07:55
[2021-07-27 13:49] VITALS: BP 156/90
== END 2021-07-27 14:09 | disposition home or self-care (01) ==
LOC: ER 10:24
DX: M79.671 Pain in right foot (principal); I10 Essential (primary) hypertension; E78.00 Pure hypercholesterolemia, unspecified; I25.10 Atherosclerotic heart disease of native coronary artery without angina pectoris; F17.200 Nicotine dependence, unspecified, uncomplicated; Z95.5 Presence of coronary angioplasty implant and graft; M10.9 Gout, unspecified; Z88.4 Allergy status to anesthetic agent; Z88.8 Allergy status to other drugs, medicaments and biological substances
CPT/HCPCS: 73630; 99283